=== PATIENT | male | born 1970 ===

== ENCOUNTER 2018-02-04 02:53 | Emergency (ER) | payer SELFPAY ==
[2018-02-04 02:58] VITALS: BP 129/65; PULSE 73; RESP 16; TEMP 98.2; O2SAT 96
--- NOTE | 2018-02-04 03:33 | ED PDOC ---
HPI: Psych/Substance Abuse Time Seen by Provider: 02/04/18 02:57 Chief Complaint (Nursing): Alcohol Ingestion Chief Complaint (Provider): Alcohol Ingestion ED Caveat: Intoxicated History Per: Patient History/Exam Limitations: intoxication Onset/Duration Of Symptoms: Other (prior to arrival) Additional Complaint(s): 47 y/o male brought in by EMS for evaluation of alcohol ingestion. Patient was found publicly intoxicated and was brought to ED for evaluation. Patient denies any medical complaits at this time. PMD: Non-[facility] Provider Past Medical History Reviewed: Historical Data, Nursing Documentation, Vital Signs, Unable To Obtain (intoxicated) Vital Signs: Last Vital Signs Temp 98.2 F 02/04/18 02:56 Pulse 73 02/04/18 02:56 Resp 16 02/04/18 02:56 BP 129/65 02/04/18 02:56 Pulse Ox 96 02/04/18 02:56 - Family History Family History: States: Unknown Family Hx - Allergies Allergies/Adverse Reactions: Allergies Allergy/AdvReac Type Severity Reaction Status Date / Time No Known Allergies Allergy Verified 02/04/18 02:58 Review of Systems Review Of Systems: ROS cannot be obtained secondary to pt's inabilty to answer questions. (intoxicated) Physical Exam - Reviewed Nursing Documentation Reviewed: Yes Vital Signs Reviewed: Yes - Physical Exam Appears: Positive for: Non-toxic, No Acute Distress Head Exam: Positive for: ATRAUMATIC, NORMAL INSPECTION, NORMOCEPHALIC Skin: Positive for: Normal Color, Warm, Dry. Negative for: Rash Eye Exam: Positive for: EOMI, Normal appearance, PERRL Neck: Positive for: Normal, Painless ROM, Supple Cardiovascular/Chest: Positive for: Regular Rate, Rhythm. Negative for: Murmur Respiratory: Positive for: Normal Breath Sounds. Negative for: Respiratory Distress Gastrointestinal/Abdominal: Positive for: Normal Exam, Soft. Negative for: Tenderness Back: Positive for: Normal Inspection. Negative for: L CVA Tenderness, R CVA Tenderness, Vertebral Tenderness Extremity: Positive for: Normal ROM. Negative for: Pedal Edema, Deformity Neurologic/Psych: Positive for: Alert (slurred speech), Oriented, Gait (steady) - ECG O2 Sat by Pulse Oximetry: 96 (RA) Pulse Ox Interpretation: Normal Medical Decision Making Medical Decision Makin:02 Impression: 47 y/o male with alcohol intoxication Plan: -Accucheck -Alcohol serum -Reevaluation 05:55 Upon provider reevaluation, patient is clinically sober at this time. Patient is awake, alert, and oriented with a steady gait. Patient stable for discharge. ----- Scribe Attestation: Documented by Harsha Cary, acting as a scribe for Marco Antonio Ashford MD. Provider Scribe Attestation: All medical record entries made by the Scribe were at my direction and personally dictated by me. I have reviewed the chart and agree that the record accurately reflects my personal performance of the history, physical exam, medical decision making, and the department course for this patient. I have also personally directed, reviewed, and agree with the discharge instructions and disposition. Disposition - Clinical Impression Clinical Impression: Alcohol abuse with intoxication - Disposition Disposition Time: 05:55 Condition: STABLE Instructions: Effects of Alcohol on Your Health Forms: [employer] (Maltese) Print Language: MARSHALLESE
== END 2018-02-04 07:28 | disposition home or self-care (01) ==
LOC: H.ER 02:53
DX: F10.129 Alcohol abuse with intoxication, unspecified (principal)
CPT/HCPCS: 82948; 99282; G0480